=== PATIENT | male | born 1995 | race Caucasian/White ===

== ENCOUNTER 2019-06-27 23:56 | Emergency (ER) | payer SELFPAY ==
[~2019-06-27] VITALS: Ht 172.7 cm; Wt 91.0 kg
[2019-06-28] MEDS ORDERED: ONDANSETRON 4MG ODT PO ONE (01:15)
[2019-06-28 01:31] LABS: BASOPHILS % 0.4 % (0.0-2.0); EOSINOPHILS % 1.1 % (0.0-5.0); HEMATOCRIT. 43.2 % (42.0-52.0); HEMOGLOBIN. 15.3 g/dL (14.0-18.0); LYMPHOCYTES % 32.1 % (20.0-50.0); MEAN CORPUSCULAR HEMOGLOBIN 32.3 pg (28.0-32.0); MEAN CORPUSCULAR VOLUME 91.3 fL (80.0-94.0); MEAN PLATELET VOLUME 9.2 fl (7.4-10.4); MONOCYTES % 7.8 % (2.0-8.0); NEUTROPHILS % 58.6 % (40.0-76.0); PLATELET 227 x1000/uL (130-400); RED BLOOD CELL COUNT 4.74 mill/uL (4.7-6.1); RED CELL DISTRIBUTION WIDTH 13.2 % (11.6-14.6)
[2019-06-28 01:37] LABS: CHLORIDE 109 mEq/L (98-107)
[2019-06-28 01:42] LABS: ETHANOL BLOOD < 10 mg/dL
[2019-06-28 04:35] VITALS: BP 112/71
== END 2019-06-28 04:38 | disposition home or self-care (01) ==
LOC: EDBD 23:56 → ER 23:56
DX: F32.9 Major depressive disorder, single episode, unspecified (principal)
CPT/HCPCS: 36415; 80053; 80307; 80320; 80329; 82962; 85025; 99285; G0480